=== PATIENT | female | born 1995 | race Hispanic/Latino ===

== ENCOUNTER 2018-09-17 03:20 | Emergency (ER) | payer OTHER ==
[2018-09-17] MEDS ORDERED: Lidocaine 1% w/Epinephrine 1:100K 20 ML VIAL ONE (03:27)
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
== END 2018-09-17 04:41 | disposition home or self-care (01) ==
LOC: ERS 03:20
DX: S01.81XA Laceration without foreign body of other part of head, initial encounter (principal); V43.62XA Car passenger injured in collision with other type car in traffic accident, initial encounter
CPT/HCPCS: 12002; 70450; J2001

== ENCOUNTER 2018-09-23 13:36 | Emergency (ER) | payer OTHER | END 2018-09-23 14:13 | disposition home or self-care (01) | LOC: ERS 13:36 | DX: S01.01XD Laceration without foreign body of scalp, subsequent encounter (principal) ==